=== PATIENT | male | born 1970 | race African-American/Black ===

== ENCOUNTER 2020-12-25 13:54 | Emergency (ER) | payer SELFPAY ==
[~2020-12-25 13:54] MED LIST: Iopamidol-370 76% 500 ML 1 ML ONE
[2020-12-25 14:31] LABS: #Basophils 0.1 thou/uL (0.0-0.2); #Lymphocytes 1.8 thou/uL (1.20-3.40); #Monocytes 0.5 thou/uL (0.11-0.59); %Basophils 1.7 % (0.0-1.0); %Eosinophils 0.9 % (0.0-10.0); %Lymphocytes 40.4 % (21.0-51.0); %Monocytes 10.4 % (0.0-10.0); %Neutrophils 46.6 % (42.0-75.0); Hemoglobin 13.9 g/dL (14.0-18.0); Mean Corpuscular HGB CONC 32.1 g/dL (32.0-36.0); Mean Corpuscular Hemoglobin 28.1 pg (27.0-31.0); Mean Corpuscular Volume 87.7 fL (78.0-98.0); Mean Platelet Volume 7.2 fL (7.4-10.4); Platelet Count 209 thou/uL (130-400); RBC Distribution Width 12.2 % (11.5-14.5); Red Blood Cell (RBC) Count 4.94 mill/uL (4.70-6.10); White Blood Cell (WBC) Count 4.3 thou/uL (4.8-10.8)
[2020-12-25 14:55] LABS: ALT (SGPT) 16 U/L (8-55); AST (SGOT) 19 U/L (5-34); Albumin 4.2 g/dL (3.5-5.0); Alkaline Phosphatase 55 U/L (40-110); Anion Gap 10 mmol/L (10-20); BUN (Urea Nitrogen) 14 mg/dL (8.4-25.7); Bilirubin, Total 0.3 mg/dL (0.2-1.2); Calc. Creatinine Clearance 0 mL/min (70-130); Calcium 9.5 mg/dL (7.8-10.44); Carbon Dioxide 28 mmol/L (22-29); Chloride 106 mmol/L (98-107); Globulin 3.1 g/dL (2.4-3.5); Glucose 75 mg/dL (70-105); Potassium 4.2 mmol/L (3.5-5.1); Protein, Total 7.3 g/dL (6.0-8.3); Sodium 140 mmol/L (136-145)
[2020-12-25] MEDS ORDERED: Ondansetron PF 4 MG/2 ML Vial ONE (19:13)
[2020-12-25] MEDS ORDERED: Morphine 4 MG/ML VIAL ONE (19:13)
== END 2020-12-25 20:30 | disposition home or self-care (01) ==
LOC: ERS 13:54
DX: K62.5 Hemorrhage of anus and rectum (principal); I10 Essential (primary) hypertension
CPT/HCPCS: 36415; 74177; 80053; 85025; 86850; 86900; 86901; 96374; 96375; J2270; J2405; Q9967